=== PATIENT | female | born 1965 | race Two or more races ===

== ENCOUNTER 2024-03-03 06:00 | Inpatient (IN) | payer MEDICAID, SELFPAY ==
--- NOTE | 2024-03-02 09:01 | EKG_ITS ---
[facility] Test Date: 2024-03-02 Pat Name: ROSALBA FISCHER Department: Room: - Gender: Female Assembly Hand: ILYA : 1965 Requested By: Matt Wesley Order Number: [id number] Reading MD: Matt Wesley Measurements Intervals [place] Rate: 65 P: 31 SC: 146 QRS: 31 QRSD: 102 T: 33 QT: 408 QTc: 424 Interpretive Statements SINUS RHYTHM Compared to ECG 03/05/2022 13:08:06 No significant changes /store/S0/[id number].pdf
--- NOTE | 2024-03-02 09:07 | XR_ITS ---
Examination: Knee, right , 3 views Technique: Knee AP, lateral, oblique 3 views Date and time of exam: March 02, 2024 0943 hours INDICATIONS: Right knee pain months FINDINGS: Advanced narrowing [id number] medial joint space right knee No fracture or dislocation Prominent osteopenia Significant osteoarthritis patellofemoral joint IMPRESSION: Advanced narrowing [id number] medial joint space right knee Advanced osteoarthritis patellofemoral joint
[2024-03-02 09:20] VITALS: BMI 39.4
[2024-03-02 10:12] LABS: Basophils # (Auto) 0.1 Thou/mm3 (0.0-0.2); Basophils % (Auto) 1 % (0-2.5); Eosinophils # (Auto) 0.1 Thou/mm3 (0.0-0.5); Eosinophils % (Auto) 3 % (0-10); Hematocrit 46.7 % (36.0-46.0); Immature Granulocytes % (Auto) 0 % (0-0); Immature Granulocytes Auto 0.01 Thou/mm3 (0.00-0.00); Lymphocytes # (Auto) 1.5 Thou/mm3 (1.0-4.8); Lymphocytes % (Auto) 29 % (10-50); Mean Corpuscular HGB Conc 32.1 g/dl (31.0-37.0); Mean Corpuscular Hemoglobin 26.5 pg (25.0-35.0); Mean Corpuscular Volume 82 fL (80-100); Monocytes # (Auto) 0.3 Thou/mm3 (0.0-0.8); Monocytes % (Auto) 5 % (0-12); Neutrophils # (Auto) 3.2 Thou/mm3 (1.8-7.7); Neutrophils % (Auto) 62 % (37-80); Nucleated Red Blood Cell % 0 /100 WBC (0); Platelet Count 307 Thou/mm3 (140-440); RDW Standard Deviation 42.1 fL (36.4-46.3); Red Blood Count 5.67 Miln/mm3 (4.00-5.20); White Blood Count 5.1 Thou/mm3 (3.6-11.0)
[2024-03-02 10:34] LABS: Partial Thromboplastin Time 28.2 Seconds (22.0-36.0); Prothrombin Time 10.5 Seconds (9.0-12.2)
[2024-03-02 10:51] LABS: Alanine Aminotransferase < 7 U/L (10-49); Albumin/Globulin Ratio 1.9 (1.2-2.2); Alkaline Phosphatase 64 U/L (46-116); Anion Gap 9 (7-16); Aspartate Amino Transferase 12 U/L (0-34); BUN/Creatinine Ratio 20 Ratio (12-20); Bilirubin,Total 0.4 mg/dL (0.3-1.2); Blood Urea Nitrogen 14 mg/dL (9-23); Calcium 9.7 mg/dL (8.3-10.6); Calcium (Corrected) 9.7 mg/dL (8.5-10.1); Carbon Dioxide 24.7 mMol/L (20.0-31.0); Chloride 109 mMol/L (98-107); Creatinine (Component) 0.7 mg/dL (0.6-1.3); Estimated Creatinine Clearance 83.7 mL/min (>60); Globulin 2.6 gm/dL (2.3-3.5); Glucose 115 mg/dL (74-106); Osmolality,Calculated 286 (275-295); Potassium 3.8 mMol/L (3.4-5.1); Sodium 143 mMol/L (136-145); Total Protein 7.6 gm/dL (5.7-8.2); eGFR > 60 See Note
[2024-03-03] VITALS (25 sets, daily range): BP systolic 116–173; BP diastolic 63–90; PULSE 70–86; RESP 12–20; TEMP 35.6–36.6; O2SAT 94–98; BMI 39.4; BMI 37.2
[2024-03-03] MEDS: RINGERS LACTATED 1000 ML 1,000 ML 20 ML IV (06:18)
--- NOTE | 2024-03-03 07:40 | CHAP ---
Patient expressed gratitude for prayer before their procedure.
--- NOTE | 2024-03-03 10:49 | SUR.PHASEI ---
pt received from OR in recovery bay 1. pt asleep but responds to voice, breathing unlabored on room air. v/s stable. pt dressing to right lower extremity cdi. report received from Dr. Mitchell and Edmund ETIENNE.
--- NOTE | 2024-03-03 10:54 | XR_ITS ---
Examination: Knee, right , 3 views Technique: Knee AP, lateral, oblique 3 views Date and time of exam: March 03, 2024 and 40 hours INDICATIONS: Postop knee replacement FINDINGS: Total right knee arthroplasty. Satisfactory alignment No fracture IMPRESSION: Total right knee arthroplasty with satisfactory alignment
--- NOTE | 2024-03-03 10:55 | ESOP_ITS ---
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 Femur size 6 narrow Tibial baseplate size D Polyethylene size 11 mm Patella size 26 mm Findings Patient has significant osteoarthritic changes. The medial joint Space was absent. 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 Plenty of osteophytes were present as well. There was genu varus deformity Procedure Description The patient was given a that the nerve block was also given anesthesia. Once satisfactory anesthesia was achieved a tourniquet was placed on right upper thigh. Intravenous antibiotics was given at the time of anesthesia. The patient was thoroughly prepped and draped. After using Esmarch the tourniquet pressure was raised to 350 mmHg. A skin incision was made 2 inches proximal to the upper pole of patella going as far down as up to the medial aspect of the tibial tuberosity. The skin was raised as a flap on the site. The bleeding vessels were electrocoagulated as and when encountered. The quadriceps tendon, medial border of the patella and the patellar tendon along the medial aspect of the tibial tuberosity was incised and reflected. The patellar tendon was reflected as much as needed to susan the patella. The soft tissue from the upper medial border of the tibia was reflected to correct her genu varum deformity. The knee joint was flexed. The anterior cruciate ligament, medial and lateral meniscus were excised. Next para drill hole was made to the inferior surface of the femur. Following that a swab was placed. A 4 ?? of abduction was already put into it. Following that a cutting block for the inferior cut of the femur was placed and nicely secured with the pins. The swat was removed. The inferior cut of the femur was made and after that the cutting block was removed. Following that a sizer was placed. A decision was made to use size [6] femur implant. 2 drill holes each in 3?? of external rotation were made. The sizer was removed. Size 6 cutting block was placed. Following that anterior, posterior, anterior chamfer and posterior chamfer cuts were made. The cutting block was removed. The knee joint was extended and a 10 mm trial plastic was removed and the intended level of the tibial cut was marked. The knee joint was flexed. With the help of double-pronged the tibia was displaced anteriorly. An extramedullary jig for the cutting block placement of the tibia was placed. The mechanical axis of the zig was parallel to the mechanical axis of the tibia. Following that the tibial cutting block was placed at the desired level and was secured nicely with the help of pins. Following that the tibial cut was made. In this case was posterior cruciate ligament was saved. The cutting block was removed. The spacer was placed and a decision was made to use size [11] polyethylene. The sizing of the tibial baseplate was done and the decision was made to use size [D] tibial baseplate. Following that size [6] trial femur implant was placed in lateralized position and size [D] tibial tibial baseplate along with size [11] plastic was placed in knee joint was flexed and extended quite a few times and tibial baseplate was allowed to sit wherever it wanted to. The markings were made for the tibial baseplate. 2 drill holes were made for the inferior surface of the femur trial implant. The trial implant was removed and tibial baseplate was placed again with the help of pins. The collar was placed and superior hole was drilled. Following that a fin cut was made. The patella was reamed with [26] mm diameter reamer. [12] mm thickness was left. A collar was placed and 3 drill holes were made. All the trial implant was placed and patellar tracking was checked and found to be good. Lateral release was done at this point. The wound was irrigated with antibiotic solution every 4-5 minutes. Now the power lavage antibiotic solution was used. The knee joint was flexed. The bone were made dry. The cement was mixed. With the help of cement the tibial baseplate was mounted. The excess cement was removed. The femur implant was placed and trial plastic was placed and knee joint was extended. Patella was also mounted with the help of cementing. Excess cement was removed. Osteophytes from the patella was removed at this time. Once the cement was set the tourniquet pressure was released. The bleeding vessels were electrocoagulated. The trial plastic was removed and 12 mm ultra high molecular weight polyethylene was placed. Closure The quadriceps tendon, medial border of the patella and patellar tendon was closed with the help of strata fix size 1. The subcutaneous tissue was closed with strata fix size 2. Following the subcutaneous a spiral Monocryl I scattered fixed size 3 was used to approximate the skin. Following that Dermabond was used and sterile dressing was applied.. Patient tolerated procedure very well. Estimated blood loss [50] mL. Prognosis in this case is good. This was taken to the recovery room in good condition. Anesthesia spinal and other Pathology / specimen None Estimated Blood Loss 50 Surgeon Matt Galarza MD Surgical Staff Operation Date: 03/03/24 08:00 Case Staff Anesthesiologist: Manoj Mitchell RNautomotive parts coordinator: Olimpia Estrada
--- NOTE | 2024-03-03 11:04 | SUR.PHASEI ---
pt able to tolerate oral fluids without difficulty swallowing or nausea/vomiting.
[2024-03-03] MEDS: ONDANSETRON INJ 2 MG/ML INJ 2 ML 4 MG IV ×2 (11:11→19:50)
[2024-03-03] MEDS: METOCLOPRAMIDE INJ 5 MG/ML VIAL 2 ML 10 MG IVP (11:29)
--- NOTE | 2024-03-03 12:38 | SUR.PHASEII ---
1238 Report received from Naresh ETIENNE, to assume care for lunch break
--- NOTE | 2024-03-03 13:00 | SUR.PHASEII ---
1300 Post spinal anesthesia assessment complete patient has dermatome sensation at S2-perineum
--- NOTE | 2024-03-03 13:05 | SUR.PHASEII ---
1305 Patient eating ice chips tolerating well, denies nausea
--- NOTE | 2024-03-03 13:26 | SUR.PHASEII ---
1326 report received given to Naresh ETIENNE
--- NOTE | 2024-03-03 13:44 | PD.ANESPROG ---
Documentation for date of: 03/03/24 ANESTHESIA NOTE: Patient had spinal anesthesia with inrathecal Duramorph and R femoral nerve block and MAC for R TKA this morning. She did well intra-op and has been in PACU post op doing well, resting calmly, VSS. I've entered spinal orders for 24 hrs. Will defer further management to the floor team, recommend to resume her cardiac meds including beta jason unless contraindicated. Manoj Mitchell MD Anesthesia Progress Note Progress Note Most recent Vital Signs: Last Vital Signs Temp 97.2 F 03/03/24 12:45 Pulse 78 03/03/24 13:15 Resp 12 03/03/24 13:15 BP 129/80 03/03/24 13:15 Pulse Ox 97 03/03/24 13:15 O2 Flow Rate 3 03/03/24 13:15
--- NOTE | 2024-03-03 15:27 | ESHP_ITS ---
RE: ROSALBA FISCHER : 1965 DATE OF ADMISSION: 03/03/2024 The patient came to my office on 02/28/2024 for detailed history and physical examination. HISTORY OF PRESENT COMPLAINT: The patient got significant pain in the right knee joint. Pain is quite bad. The patient is unable to walk more than 2-3 blocks before the patient has to stop walking. Basically, her quality of life and activities of daily living is affected. The patient is unable to sleep. X-ray was obtained, which revealed severe osteoarthritic changes, especially of the medial compartment and patellofemoral compartment. The patient wants something to be done about it. PAST MEDICAL HISTORY: The patient has a history of high blood pressure and she is prediabetic. No history of asthma, seizure, chest pain, or myocardial infarction or bleeding disorder. PAST SURGICAL HISTORY: and cholecystectomy. The patient also underwent left knee surgery in 2022. DRUG HISTORY: The patient is on, 1. Metoprolol. 2. Nifedipine. 3. Atorvastatin. 4. Aspirin. The patient stopped aspirin some days back. ALLERGIES: NIL KNOWN. FAMILY HISTORY AND SOCIAL HISTORY: The patient denies smoking, drinking and is not working. PHYSICAL EXAMINATION: GENERAL: Normal built lady. VITAL SIGNS: Pulse 88 per minute. Blood pressure is 120/76. NECK: Soft, supple, normocephalic. Trachea is centrally placed. CARDIOVASCULAR SYSTEM: First and second heart sound normal. No murmur heard. LUNGS: Bilateral vesicular breath sounds. CHEST: Clear. ABDOMEN: Soft. No masses felt. Bowel sounds present. BREASTS: Not indicated in this case. RECTAL: The patient was advised to see the family of physician for rectal examination. EXTREMITIES: Right knee examination revealed mild swelling. There is 2+ tenderness. Active range of motion is 0 to 115 degrees of flexion. Patellofemoral crepitus is present. There is genu varum deformity as well. The patient walks with a limp. DIAGNOSTIC DATA: X-ray of the right knee joint also revealed significant osteoarthritic changes with decreased medial joint space and patellofemoral joint space. ASSESSMENT AND PLAN: Since the patient is symptomatic, therefore, right total knee replacement was advised. Risks of anesthesia was explained and that includes, but not limited to reaction to anesthetic agents, cardiac arrest, rarely it might be fatal. Risks with outpatient includes infection and if that happens, the patient may need further surgical procedure. Other risks include delayed healing, wound assessment, etc. Sometime rare complication happens and if that happens that has to be taken care of. No guarantees given regarding outcome of the procedure and/or functional outcome. Accordingly, surgery is booked for 03/03/2024. Appropriate lab work was done. DT: 13:11:50 TT: 15:26:00 Ref: [id number] - TID: [id number]
--- NOTE | 2024-03-03 17:55 | SUR.PHASEII ---
pt awake and alert, breathing unlabored on 2l nc. v/s stable. pt dressing to right lower extremity cdi. report called to Janine ETIENNE. pt will be transferred to room at this time.
[2024-03-03] MEDS: ceFAZolin/D5W 1 GM IVPB 1 GM/50 ML BAG IV (18:11)
[2024-03-04] VITALS: BP 120/71; PULSE 82; RESP 18; TEMP 36.2; O2SAT 95
[2024-03-04 01:09] VITALS: PULSE 85; RESP 18; O2SAT 95
[2024-03-04] MEDS: ceFAZolin/D5W 1 GM IVPB 1 GM/50 ML BAG IV (01:35)
[2024-03-04 04:00] VITALS: BP 150/74; PULSE 73; RESP 18; TEMP 36.7; O2SAT 96
[2024-03-04 06:14] LABS: Basophils % (Auto) 0 % (0-2.5); Eosinophils % (Auto) 0 % (0-10); Hematocrit 38.6 % (36.0-46.0); Hemoglobin 12.5 g/dL (12.0-16.0); Immature Granulocytes % (Auto) 0 % (0-0); Immature Granulocytes Auto 0.05 Thou/mm3 (0.00-0.00); Lymphocytes # (Auto) 1.2 Thou/mm3 (1.0-4.8); Lymphocytes % (Auto) 10 % (10-50); Mean Corpuscular HGB Conc 32.4 g/dl (31.0-37.0); Mean Corpuscular Hemoglobin 26.9 pg (25.0-35.0); Mean Corpuscular Volume 83 fL (80-100); Monocytes % (Auto) 8 % (0-12); Neutrophils # (Auto) 10.2 Thou/mm3 (1.8-7.7); Neutrophils % (Auto) 82 % (37-80); Nucleated Red Blood Cell % 0 /100 WBC (0); Platelet Count 259 Thou/mm3 (140-440); RDW Standard Deviation 42.5 fL (36.4-46.3); Red Blood Count 4.64 Miln/mm3 (4.00-5.20); White Blood Count 12.5 Thou/mm3 (3.6-11.0)
[2024-03-04 06:55] VITALS: PULSE 83; RESP 20; O2SAT 96
[2024-03-04 08:00] VITALS: BP 123/58; PULSE 81; RESP 18; TEMP 36.4; O2SAT 95
[2024-03-04] MEDS: HYDROcodone/APAP 5/325 TABLET 1 TAB PO (08:51)
[2024-03-04] MEDS: ASPIRIN EC 81 MG TABEC PO (08:52)
[2024-03-04 09:30] VITALS: BMI 13.0
== END 2024-03-04 10:22 | disposition home or self-care (01) | DRG 326 ==
LOC: S3NX 18:01
PROVIDERS: Anesthesiology; Admitting Provider Orthopaedic Surgery; PCP Physician Assistant; Referring Provider Orthopaedic Surgery; Visit Provider Orthopaedic Surgery
PROC: 0SRC0J9 Replacement of Right Knee Joint with Synthetic Substitute, Cemented, Open Approach (ICD-10-PCS; principal; 2024-03-03 08:00)
DX: M17.11 Unilateral primary osteoarthritis, right knee (principal); M21.161 Varus deformity, not elsewhere classified, right knee; M94.261 Chondromalacia, right knee; M25.761 Osteophyte, right knee; Z90.49 Acquired absence of other specified parts of digestive tract
CPT/HCPCS: 36415; 73562; 80053; 85025; 85610; 85730; 86850; 86900; 86901; 86923; 93005; A4217; C1713; C1776; J0689; J0690; J1100; J1580; J2250; J2274; J2371; J2405; J2704; J2765; J2795; J3010; J3490; J7120; A9270; J2270

== ENCOUNTER → 2024-06-12 | Outpatient (CLI) | payer MEDICAID, SELFPAY ==
--- NOTE | 2024-06-12 15:53 | XR_ITS ---
Examination: Knee, right , 3 views Technique: Knee AP, lateral, oblique 3 views Date and time of exam: June 12, 2024 1725 hrs. Indications: Postop knee arthroplasty, pain 3 months. Findings: Moderate osteopenia. Total right knee arthroplasty. Satisfactory alignment No fracture No loosening prosthetic components Impression: Total right knee arthroplasty with satisfactory alignment
== END | disposition home or self-care (01) ==
PROVIDERS: PCP Physician Assistant; Referring Provider Orthopaedic Surgery; Visit Provider Orthopaedic Surgery
DX: M17.11 Unilateral primary osteoarthritis, right knee (principal); Z96.651 Presence of right artificial knee joint
CPT/HCPCS: 73562

== ENCOUNTER → 2025-02-08 | Outpatient (CLI) | payer MEDICAID, SELFPAY ==
--- NOTE | 2025-02-08 15:00 | XR_ITS ---
Examination: Screening digital mammography, bilateral Computer aided detection 3-D breast Tomosynthesis, bilateral Date and time of exam: 02/08/2025, 2:55 p.m. Comparisons: 03/22/2023 Indications: Screening Technique: Nonmagnified MLO, CC views of the breasts to been obtained, reconstructed from 3-D Tomosynthesis images. R2 computer aided detection program utilized for evaluation of suspicious masses and/or abnormal calcifications. 3-D Tomosynthesis images obtained. Technologist: Findings: There are scattered areas of fibroglandular density. No evidence of abnormal masses or suspicious calcifications. Impression: BI-RADS category 1: Negative findings (within normal) Recommend 1 year follow-up mammogram
== END | disposition home or self-care (01) ==
LOC: CDIM 14:32
PROVIDERS: Referring Provider Physician Assistant; Visit Provider Physician Assistant
DX: Z12.31 Encounter for screening mammogram for malignant neoplasm of breast (principal); R92.313 Mammographic fatty tissue density, bilateral breasts
CPT/HCPCS: 77063; 77067